=== PATIENT | female | born 1960 | race Caucasian/White ===

== ENCOUNTER 2021-09-28 20:37 | Inpatient (IN) | payer MEDICAID, OTHER ==
[~2021-09-28] VITALS: Ht 147.3 cm; Wt 57.2 kg
[~2021-09-28 20:37] MED LIST: CALC-1042 MT; FERR-71 MT; INSU100I28 SQ; INSULIN; LEVVL SQ; METF-873 PO; MV-M1TAB57 PO; PANT40TA51 MT; PROP10TA10 PO
[2021-09-28] MEDS ORDERED: ONDANSETRON HCL 4MG/2ML INJ IV STA (22:36)
[2021-09-28] MEDS ORDERED: PANTOPRAZOLE SODIUM 40 MG/VIAL IV STA (22:36)
[2021-09-28] MEDS ORDERED: SODIUM CHLORIDE 0.9% 1,000 ML IV ONE ×2 (22:45→23:30)
[2021-09-28] MEDS ORDERED: OCTREOTIDE ACETATE 50 MCG/ML 1ML IV ONE (22:45)
[2021-09-28 23:20] LABS: BASOPHILS % 0.6 % (0.0-2.0); CHLORIDE 95 mEq/L (98-107); EOSINOPHILS % 0.1 % (0.0-5.0); HEMATOCRIT. 24.9 % (36.0-48.0); HEMOGLOBIN. 7.8 g/dL (12.0-16.0); INR 1.4; LYMPHOCYTES % 33.3 % (20.0-50.0); MEAN CORPUSCULAR VOLUME 85.7 fL (81.0-99.0); MEAN PLATELET VOLUME 10.5 fl (7.4-10.4); PLATELET 106 x1000/uL (130-400); PROTHROMBIN TIME 15.1 sec (9.6-11.0); RED CELL DISTRIBUTION WIDTH 17.9 % (11.6-14.6)
[2021-09-28 23:29] LABS: ETHANOL BLOOD < 10 mg/dL
[2021-09-28] MEDS ORDERED: SODIUM BICARBONATE 8.4% 1 MEQ/ML 50ML SYR IV NR (23:30)
[2021-09-28] MEDS ORDERED: CALCIUM CHLORIDE 1GM/10ML SYR IV NR (23:30)
[2021-09-28] MEDS ORDERED: DEXTROSE 50% WATER 50ML SYRINGE IV NR (23:30)
[2021-09-28] MEDS ORDERED: INSULIN REGULAR (HUMULIN R) 300UNITS/3ML VIAL IV NR (23:30)
[2021-09-28] MEDS ORDERED: ALBUTEROL (0.083%) 2.5MG/3ML NEB HHN NR (23:30)
[2021-09-28] MEDS ORDERED: DEXTROSE 50% WATER 50ML SYRINGE IV ONE (23:30)
[2021-09-29] VITALS (33 sets, daily range): BP systolic 90–116; BP diastolic 40–68
[2021-09-29 03:11] LABS: CLARITY URINE CLEAR (CLEAR); COLOR URINE YELLOW (YELLOW); KETONES URINE TRACE (NEGATIVE); LEUKOCYTE ESTERASE URINE NEGATIVE (NEGATIVE); NITRITE URINE NEGATIVE (NEGATIVE); OCCULT BLOOD URINE NEGATIVE (NEGATIVE); PROTEIN URINE NEGATIVE (NEGATIVE); SPECIFIC GRAVITY URINE 1.023 (1.005-1.030); UROBILINOGEN URINE 0.2 E.U./dL (0.2-1.0)
[2021-09-29 03:47] LABS: *AMPHETAMINES SCREEN URINE NEGATIVE (NEGATIVE); *BARBITURATES SCREEN URINE NEGATIVE (NEGATIVE); *BENZODIAZEPINES SCREEN URINE NEGATIVE (NEGATIVE); *COCAINE SCREEN URINE NEGATIVE (NEGATIVE); CANNABINOID URINE SCREEN NEGATIVE (NEGATIVE); METHADONE URINE SCREEN NEGATIVE (NEGATIVE); OPIATES URINE SCREEN NEGATIVE (NEGATIVE); PHENCYCLIDINE URINE SCREEN NEGATIVE (NEGATIVE)
[2021-09-29] MEDS ORDERED: DEXTROSE 50% WATER 50ML SYRINGE IV PRN (11:45)
[2021-09-29] MEDS ORDERED: ONDANSETRON HCL 4MG/2ML INJ IV PRN (11:45)
[2021-09-29] MEDS ORDERED: PANTOPRAZOLE SODIUM 40 MG/VIAL IV SCH (12:00)
[2021-09-29] MEDS: SODIUM CHLORIDE 0.9% 1,000 ML IV SCH (12:31)
[2021-09-29] MEDS: INSULIN LISPRO 100 UNITS/ML SUBCUT SCH ×3 (13:48→21:44)
[2021-09-29 17:00] LABS: CHLORIDE 103 mEq/L (98-107)
[2021-09-29 17:07] LABS: HEMATOCRIT 18.8 % (36.0-48.0); HEMOGLOBIN 6.1 g/dL (12.0-16.0)
[2021-09-29] MEDS: BLOOD SUGAR DIAGNOSTIC STRIP TEST SCH ×2 (17:24→20:32)
[2021-09-29] MEDS: SUCRALFATE 1 G/10 ML UDC PO SCH ×2 (17:27→21:02)
[2021-09-29] MEDS: PANTOPRAZOLE SODIUM 40 MG/VIAL IV SCH (21:02)
[2021-09-29] MEDS: INSULIN GLARGINE 100 UNITS/ML SUBCUT SCH (21:45)
[2021-09-30] VITALS (15 sets, daily range): BP systolic 93–118; BP diastolic 51–67
[2021-09-30] MEDS: SODIUM CHLORIDE 0.9% 1,000 ML IV SCH ×2 (01:20→14:40)
[2021-09-30 01:51] LABS: HEMATOCRIT 25.2 % (36.0-48.0); HEMOGLOBIN 8.6 g/dL (12.0-16.0)
[2021-09-30 07:13] LABS: INR 1.3; PROTHROMBIN TIME 13.4 sec (9.6-11.0)
[2021-09-30 07:17] LABS: BASOPHILS % 0.4 % (0.0-2.0); EOSINOPHILS % 1.1 % (0.0-5.0); HEMATOCRIT. 26.4 % (36.0-48.0); MEAN CORPUSCULAR HEMOGLOBIN 27.7 pg (28.0-32.0); MEAN CORPUSCULAR VOLUME 81.5 fL (81.0-99.0); MEAN PLATELET VOLUME 9.6 fl (7.4-10.4); MONOCYTES % 7.1 % (2.0-8.0); NEUTROPHILS % 52.4 % (40.0-76.0); PLATELET 63 x1000/uL (130-400); RED BLOOD CELL COUNT 3.24 mill/uL (4.2-5.4); RED CELL DISTRIBUTION WIDTH 17.3 % (11.6-14.6)
[2021-09-30 07:23] LABS: CHLORIDE 103 mEq/L (98-107)
[2021-09-30] MEDS: BLOOD SUGAR DIAGNOSTIC STRIP TEST SCH ×4 (07:30→21:00)
[2021-09-30 07:36] LABS: TOTAL IRON BINDING CAPACITY 352 ug/dL (250-450)
[2021-09-30 07:57] LABS: FOLIC ACID (FOLATE) SERUM 17.4 ng/mL (>5.38)
[2021-09-30] MEDS: INSULIN LISPRO 100 UNITS/ML SUBCUT SCH ×4 (08:00→21:03)
[2021-09-30] MEDS ORDERED: POTASSIUM CHLORIDE 20MEQ TABLET SR PO NR (09:00)
[2021-09-30] MEDS: SUCRALFATE 1 G/10 ML UDC PO SCH ×4 (09:16→21:02)
[2021-09-30] MEDS: PANTOPRAZOLE SODIUM 40 MG/VIAL IV SCH ×2 (09:17→21:02)
[2021-09-30] MEDS: INSULIN GLARGINE 100 UNITS/ML SUBCUT SCH ×2 (09:18→21:02)
[2021-09-30] MEDS ORDERED: PROPOFOL 200MG/20ML VIAL IV ONE (13:49)
== END 2021-09-30 21:29 | disposition home or self-care (01) | DRG 241 ==
LOC: ER 20:37 → MICUSO 09-29 00:39 → 5EST 09-29 13:07
PROVIDERS: ADMIT Internal Medicine; ATTEND Internal Medicine
PROC: 30233N1 Transfusion of Nonautologous Red Blood Cells into Peripheral Vein, Percutaneous Approach (ICD-10-PCS; principal; 2021-09-29)
PROC: 0DB78ZX Excision of Stomach, Pylorus, Via Natural or Artificial Opening Endoscopic, Diagnostic (ICD-10-PCS; 2021-09-30)
DX: K29.71 Gastritis, unspecified, with bleeding (principal); D69.6 Thrombocytopenia, unspecified; E87.2 Acidosis; E44.0 Moderate protein-calorie malnutrition; E87.1 Hypo-osmolality and hyponatremia; D50.9 Iron deficiency anemia, unspecified; E11.65 Type 2 diabetes mellitus with hyperglycemia; I10 Essential (primary) hypertension; K70.30 Alcoholic cirrhosis of liver without ascites; E87.5 Hyperkalemia; E87.8 Other disorders of electrolyte and fluid balance, not elsewhere classified; Z60.2 Problems related to living alone; F41.9 Anxiety disorder, unspecified; Z20.822 Contact with and (suspected) exposure to COVID-19; E11.40 Type 2 diabetes mellitus with diabetic neuropathy, unspecified; I85.10 Secondary esophageal varices without bleeding; K31.9 Disease of stomach and duodenum, unspecified; Z87.11 Personal history of peptic ulcer disease; Z68.26 Body mass index [BMI] 26.0-26.9, adult; Z79.84 Long term (current) use of oral hypoglycemic drugs; Z79.4 Long term (current) use of insulin; Z79.899 Other long term (current) drug therapy
CPT/HCPCS: 36415; 71045; 74176; 76700; 80048; 80053; 80305; 80320; 81003; 82140; 82607; 82728; 82746; 82962; 83540; 83550; 83605; 84484; 85014; 85018; 85025; 85044; 86850; 86900; 86920; 87426; 88305; 93005; 99291; C9113; J1815; J2354; J2405; J2704; J3490; J7030; P9016; G0480

== ENCOUNTER 2022-11-14 16:17 | Emergency (ER) | payer OTHER ==
[~2022-11-14] VITALS: Ht 132.1 cm; Wt 53.0 kg
[~2022-11-14 16:17] MED LIST changes: -PROP10TA10 PO
[2022-11-14 16:39] VITALS: O2SAT 100
[2022-11-14] MEDS ORDERED: IBUPROFEN 600MG TABLET PO ONE (17:15)
[2022-11-14] MEDS ORDERED: ACET-2708 MT (17:30)
[2022-11-14 19:10] VITALS: BP 124/64; PULSE 87; RESP 19; TEMP 98.2
== END 2022-11-14 19:11 | disposition home or self-care (01) ==
LOC: ER 16:17
DX: S62.101A Fracture of unspecified carpal bone, right wrist, initial encounter for closed fracture (principal); E11.9 Type 2 diabetes mellitus without complications; W18.30XA Fall on same level, unspecified, initial encounter; Y93.89 Activity, other specified; Y92.89 Other specified places as the place of occurrence of the external cause; Y99.8 Other external cause status
CPT/HCPCS: 29125; 73110; 99283